=== PATIENT | female | born 1945 | race Caucasian/White ===

== ENCOUNTER 2018-01-30 05:14 | Emergency (ER) | payer OTHER ==
[~2018-01-30] VITALS: Ht 167.6 cm; Wt 106.3 kg
[~2018-01-30 05:14] MED LIST: ASPIR-TRIN325 M1 PO; ATIVAN0.5 M1 PO; Ativan PO; Buspar PO; CELEBREX200 MG PO; COLACE100 MG PO; Colace PO; EFFEXOR XR75 MG PO; ENDOCET 5-3251 EACH PO; Ecotrin PO; Elavil PO; FEOSOL325 MG PO; Feosol PO; LEXAPRO20 MG PO; Percocet 5/325,Endoc PO; SENOKOT S,PE1 TABLET PO; Senokot S,Pericolace PO; Senokot,Sennagen PO; ValTRex PO; Vicodin,Lortab 5/500 PO; WELLBUTRIN SR150 MG PO; Zocor PO
[2018-01-30] MEDS ORDERED: PERCOCET 5/31 TABLET PO (06:42)
[2018-01-30 06:45] VITALS: BP 120/84
== END 2018-01-30 06:46 | disposition home or self-care (01) ==
LOC: EME 05:14
PROC: 2W3DX1Z Immobilization of Left Lower Arm using Splint (ICD-10-PCS; principal; 2018-01-30)
DX: S69.92XA Unspecified injury of left wrist, hand and finger(s), initial encounter (principal); S09.90XA Unspecified injury of head, initial encounter; W10.9XXA Fall (on) (from) unspecified stairs and steps, initial encounter; E78.5 Hyperlipidemia, unspecified; F32.9 Major depressive disorder, single episode, unspecified; F41.9 Anxiety disorder, unspecified
CPT/HCPCS: 73110; 99281; 99283

== ENCOUNTER → 2018-03-20 | Outpatient (CLI) | payer OTHER ==
[~2018-03-20] MED LIST changes: +PERCOCET 5/31 TABLET PO
== END | disposition home or self-care (01) ==
DX: Z01.818 Encounter for other preprocedural examination (principal); M16.11 Unilateral primary osteoarthritis, right hip; R26.2 Difficulty in walking, not elsewhere classified; M25.551 Pain in right hip; M25.651 Stiffness of right hip, not elsewhere classified; M62.81 Muscle weakness (generalized); Z74.1 Need for assistance with personal care
CPT/HCPCS: 97161 GP; 97165 GO; 97530 GP; 97535 GO; G8978 GP; G8979 GP; G8980 GP; G8987 GO; G8988 GO; G8989 GO

== ENCOUNTER 2018-04-15 22:06 | Inpatient (IN) | payer OTHER, BC ==
[~2018-04-15] VITALS: Ht 167.6 cm; Wt 100.6 kg
[~2018-04-15 22:06] MED LIST changes: +ATIVAN0.5 MG PO; +BUSPAR30 MG PO; +ELAVIL100 MG PO; +MOTRIN IB200 MG PO; +REMERON45 MG PO; +ZOCOR20 MG PO
[2018-04-16 11:33] VITALS: BP 136/68
[2018-04-16 17:13] LABS: HEMATOCRIT 33.6 % (36.0-46.0); MCH 29.6 PG (29.0-34.0); MCHC 31.3 G/DL (30.0-36.0); MCV 94.6 FL (83-99); PLATELET COUNT 230 K/uL (156-360); RBC DIS.WIDTH-CV 13.3 % (11.8-14.6); RBC DIS.WIDTH-SD 47.1 % (39-53); RED BLOOD COUNT 3.55 M/uL (3.80-5.20); WHITE BLOOD COUNT 6.9 K/uL (4.1-10.2)
[2018-04-16 17:30] LABS: HEMOGLOBIN 10.5 G/DL (11.9-15.5)
[2018-04-16 17:38] VITALS: BP 144/65
[2018-04-16 19:50] VITALS: BP 139/62
[2018-04-17] VITALS (7 sets, daily range): BP systolic 102–123; BP diastolic 50–60
[2018-04-17 07:13] LABS: HEMATOCRIT 35.6 % (36.0-46.0); HEMOGLOBIN 11.2 G/DL (11.9-15.5); MCV 95.2 FL (83-99)
[2018-04-17 07:36] LABS: CHLORIDE 102 MEQ/L (99-109); CREATININE 0.8 MG/DL (0.6-1.3); GFR ESTIMATE (CALCULATED) > 59 mL/min/; GLUCOSE 133 mg/dL (70-99); POTASSIUM 4.4 MEQ/L (3.7-5.4); SODIUM 137 MEQ/L (136-147); UREA NITROGEN (BUN) 12 mg/dL (9-23)
[2018-04-18 04:18] VITALS: BP 124/58
[2018-04-18 08:00] VITALS: BP 108/53
[2018-04-18] MEDS ORDERED: OXYCODONE HCL5 MG PO (08:40)
[2018-04-18] MEDS ORDERED: SENNA PLUS TAB1 EACH PO (08:40)
[2018-04-18] MEDS ORDERED: LOVENOX40 MG/0.4 SC (08:40)
[2018-04-18 12:31] VITALS: BP 108/50
[2018-04-18 15:34] VITALS: BP 117/59
== END 2018-04-18 16:35 | disposition home health service (06) | DRG 470 ==
LOC: ENRESERV 22:06 → 2SOUTH 04-16 02:38 → 3WEST 04-16 11:00 → 2SOUTH 04-16 11:00 → 3WEST 04-16 17:18
PROVIDERS: Orthopaedic Surgery
PROC: 0SR902A Replacement of Right Hip Joint with Metal on Polyethylene Synthetic Substitute, Uncemented, Open Approach (ICD-10-PCS; principal; 2018-04-16)
DX: M16.11 Unilateral primary osteoarthritis, right hip (principal); F33.9 Major depressive disorder, recurrent, unspecified; F41.1 Generalized anxiety disorder; E78.2 Mixed hyperlipidemia; F51.01 Primary insomnia; E66.3 Overweight; Z90.710 Acquired absence of both cervix and uterus; Z96.653 Presence of artificial knee joint, bilateral; Z90.49 Acquired absence of other specified parts of digestive tract; Z88.0 Allergy status to penicillin; Z88.5 Allergy status to narcotic agent; Z68.35 Body mass index [BMI] 35.0-35.9, adult
CPT/HCPCS: 73501; 80048; 85014; 85018; 85027; 97530 GO; J0131; J0690; J1650; J2250; J2405; J7050